=== PATIENT | male | born 1980 | race Caucasian/White ===

== ENCOUNTER 2019-03-19 09:00 | Outpatient (RCR) | payer OTHER, MEDICAID, SELFPAY ==
--- NOTE | 2019-03-19 09:00 | BH.SGPN.GN ---
Behaviors/Verbalizations/Mental Status: [] Eye contact is good. Motor activity is appropriate. Appearance is casual. Speech is Appropriate. Mood is depressed. Affect is flat. Thoughts are linear and logical. No evidence of psychosis. Reviewed daily check in sheet and no reports of suicidal ideations or intent. Client Response/Progress/Benefit: [] Pt participated at times during group discussion. Daily symptom tracker indicates 4/5 for anxiety, worries, and fears. Also reports hopelessness. This is pt's first day in PHP. Introduced self to the group. Talked about recent inpatient admission, recent break-up, and struggles with depression. States he needs to learn how to stay outside my head. Group was support and welcoming which was beneficial. No progress as this was fist day. Will continue in PHP to maintain safety, prevent decompensation, increase coping skills, and improve functioning to return to work. Narrative Note: []
--- NOTE | 2019-03-19 10:16 | BH.SGPN.GN ---
Behaviors/Verbalizations/Mental Status: [Client alert and oriented, casually dressed and appropriate grooming. Eye contact fair to good. Motor activity appropriate. Speech within normal limits. Affect congruent, mood depressed. Thoughts linear, logical, no signs of hallucinations or delusions] Client Response/Progress/Benefit: [Pt participated in group discussion and worksheet activity. Pt connected with the group topic of Crisis and indicated that how you learn to deal with past crisis situations can impact your approach in the future. Pt Worked together with the group to define a crisis and discuss examples of crisis situations. Pt described his divorce as an example of potential crisis. Client helped the group explore how coping with crisis in unhealthy ways can impact mental health and lead to additional crisis. He shared personal example of how past trauma caused him to ?try and control the uncontrollable? which impacted his current relationship. Group identified warning signs for crisis which included; increased sleep, irritability, decreased appetite, and suicidal thoughts. Client completed the personal warning signs worksheet and identified top three crisis warning signs as; isolation, uncontrollable worry, and increased negative thinking. Benefited from group by increasing awareness of crisis and personal warning signs. Progress noted as pt displaying increased insight into personal warning signs and impact of unhealthy coping on crisis management. Will continue IOP to promote mood stability and emotion regulation, reduce anxiety and racing thoughts, decrease isolation.?] Narrative Note: []
--- NOTE | 2019-03-19 11:15 | BH.SGPN.GN ---
Behaviors/Verbalizations/Mental Status: []]Client alert and oriented, casually dressed and groomed. Eye contact good. Motor activity appropriate. Speech within normal limits. Affect constricted, mood anxious and dysthymic. Thoughts linear, logical, no signs of hallucinations or delusions. Client Response/Progress/Benefit: []Client responded well to session as evidenced by client listening attentively to others and sharing when prompted. Client identified her warning signs for crisis and gained further awareness of his earliest warning signs. Client recognized that awareness of these warning signs can prevent further crisis and help client utilize healthy coping skills to break the cycle. Client created a crisis action plan to help client better manage earliest warning signs for crisis of negative thinking, uncontrollable worries, and isolating. Client?s plan included coping skills such as challenge negative thoughts, positive self-talk, reminding self a thought is a thought, changing environment, and reaching out to support group. Client appeared to benefit from creating a crisis action plan and increasing his self-awareness. Client's first day in IOP. Client to continue IOP level of care to increase healthy coping, decrease depressive symptoms, and prevent decompensation. Narrative Note: []
--- NOTE | 2019-03-19 13:19 | BH.MDN_ITS ---
Multi-Disciplinary Note - Note 45-min Individual Time Started:: 12:30 Date: 03/19/19 Purpose of session/treatment goals addressed:: Review current symptoms and progress in [facility]. Began to develop treatment goals and objectives. Eye Contact:: Good Motor Activity:: Appropriate Appearance:: Casual Speech:: Appropriate Mood:: Depressed Affect:: Flat Thoughts:: Linear, Logical, No evidence of hallucinations/delusions noted Staff Interventions:: Utilized [place] techniques to elicit change behaviors. Worked with pt to develop some treatment goals. Client Response:: Pt reports that the groups today were very helpful. Notes that since his inpatient hospitalization he has noted an improvement in mood and decrease in depression. Denies any suicidal ideations, plan, or intent. Discussed the benefits of the hosptialization. Giulia moved on on 03/17/19. Yesterday was the first day back to the house. He went with a friend which he beleived would be easier. Spent some time in the house and actually went back later on in the day. It's not as bad as I thought. Was orignally scared to be alone with his thoughts in the house which was one of the reasons for the [facility]. Currently living with his parents which he beleives is better than being the house all alone. Hopeful about the future. Goals for the IOP include; control my emotions and thoughts; anger management, get over my divorce, learn to trust others. Risks/Concerns:: No risk or concerns. Pt denies any active suicidal ideations, plan, or intent. Last sucidal thoughts was fleeting and occured on 03/17/19 prior to hospitilzation and after hearing news his giulia moved out. Future-oriented. Protective factors. Progress Toward Goals/Plan:: Limited progress as this was first day in [facility]. Decreased severity, duration, and intensity of symptoms since hospitalization. Continues to report grief regarding relationship with giulia, depression, regret, and anxiety which impact functioning. Will continue in [facility] to maintain safety, prevent decompensation, and increase coping skills. Time Stopped:: 13:00
--- NOTE | 2019-03-22 09:02 | BH.SGPN.GN ---
Behaviors/Verbalizations/Mental Status: [Eye contact is fair to good. Motor activity is appropriate. Appearance is casual and grooming appropriate. Speech is WNL. Mood is depressed, anxious. Affect is congruent. Thoughts are linear and logical. No evidence of psychosis. Reviewed daily check in sheet and no reports of suicidal ideations or intent.] Client Response/Progress/Benefit: [Pt was receptive of group, engaged in discussion though taking on an mostly passive participatory role. Indicated connecting with other?s input. Emotion for today is ?sad? and ?guilty?. Pt attributes this to feeling as though his struggles in managing mental health symptoms are placing a burden on other's in his life. Pt went on to describe difficulties in challenging thoughts causing guilt and noted I just can't seem to get control of my emotions. Pt appeared to benefit from fellow participants support and encouragement, as well as normalizing his struggles as others indicated similar experiences when beginning tx. Pt able to identify mental health wins and shared making progress with using opposite action over the weekend as he had followed through with going to play basketball at the park despite low levels of motivation to do so. Pt shared this was helpful and improved his mood at the time, however felt short lived. Additional win was taking time to make sure he is eating healthy food as he feels better mentally when his physical health is cared for. Some progress in pt application of behavior activation over weekend. However, continued PHP tx recommended to promote further utilization, decrease self-deprecation, and maintain safety. ] Narrative Note: []
--- NOTE | 2019-03-22 10:14 | BH.SGPN.GN ---
Behaviors/Verbalizations/Mental Status: []Client alert and oriented. Casual in dress and appropriate grooming. Eye contact good. Motor activity appropriate. Speech within normal limits. Affect constricted, mood depressed. Thoughts linear, logical, no signs of hallucinations or delusions. Client Response/Progress/Benefit: []Pt was an active participant in group discussion. Processed quote of the day with peers. Group discussed the MH benefits to having open and clear communication with support and providers. Group also discussed the barriers that tend to impact clear and open communication which include: depression, anxiety, fear, not trusting others, feeling like others don't understand you, shutting down, and unmanaged emotions. Pt reported all my emotions get in the way of communicating effectively. Pt reported when his emotions are heightened he will either shut down or start arguments. Pt shared if he is passive he will eventually break because can no longer bottle his emotions. Pt was attentive during psycho-education on communications styles (aggressive, passive, passive-aggressive, and assertive). Also provided input on the pros and cons to each communication style. Seemed to benefit from increased awareness of how communication style can impact mental health. Pt to continue IOP level of care to decrease depression, increase utilization of healthy coping, and prevent decompensation. Narrative Note: []
--- NOTE | 2019-03-22 11:16 | BH.SGPN.GN ---
Behaviors/Verbalizations/Mental Status: []Client alert and oriented, casually dressed and groomed. Eye contact good. Motor activity appropriate. Speech within normal limits. Affect congruent but laughing at times, mood anxious. Thoughts linear, logical, no signs of hallucinations or delusions. Client Response/Progress/Benefit: []Client responded well to session, contributing to discussion. Engaged in ongoing psychoeducation on the different communication styles. Client able to gain insight into his communication style and client reported ?I start passive and then I overflow and get aggressive.? Client shared he tends to hold in emotions and then they build up which results in client saying things he does not mean. Client reported these communication styles have negatively impacted his mental health and relationships. Client shared he has low self-esteem, guilt, and regret from his communication styles. Participated in group activity and took an active role which suggests progress. Able to use the activity to reflect on ways to improve communication. Attentive during psychoeducation on D.E.A.R M.A.N and reported he wants to work on being more mindful of his approach to communication. Appeared to benefit from increasing self-awareness and practicing in the moment coping skills. Will continue PHP to prevent decompensation and improve mood stability.
--- NOTE | 2019-03-22 11:57 | BH.MTP_ITS ---
Master Treatment Plan - Patient Information Program Physician:: Dr. 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 Generalized Anxiety Disorder Diagnosis Code(s):: F33.2; F41.1 - Estimated LOS Estimated LOS (in weeks):: 1 Problem/Goal #1 - Problem/Goal #1 Stated Goal:: Client will decrease depressive symptoms, isolation, suicidal ideations, and agitation due to Major Depressive Disorder through PHP Description of Barriers: stigma, trust issues, hx of trauma, recent break-up Functional Impact: Depression has impacted ability to function at work ( on [address]), his relationships, and socialization. - Objectives Objective #1 Stated Objective: Client will work with therapist to develop a ?crisis plan? which includes emergency telephone numbers, 3-4 coping strategies for SI, lists of supports, positive aspects of his/her life, and motivations Interventions: Through indivudal and group counseling will provided pt with education and coping skills. Therapist will provided a safety plan worksheet and assist pt in completing this worksheet Discharge Criteria: Completion of safety plan. Target Date: 03/26/19 Review Date: 03/26/19 Objective #2 Stated Objective: Client will be given a thought log and fill out at least 2 different occurences involving event, thoughts, feelings, and behaviors to increase insight into the impact of thoughts of feelings and behaviors. Interventions: Through individual and group counseling will provide education and guidance on completing a thought log Discharge Criteria: Will have complete a thougt log for at least 2 different events. Target Date: 03/26/19 Review Date: 03/26/19 Problem/Goal #2 - Problem/Goal #2 Stated Goal:: Client will reduce overall frequency, intensity, and duration of the anxiety so that daily functioning is not impaired. Description of Barriers: stigma, recent break-up, lack of trust, hx of trauma Functional Impact: Anxiety has led to isolative and controlling behaviors which has impacted relationships and socialization. - Objectives Objective #1 Stated Objective: Client will learn and implement 2-3 calming skills to reduce overall anxiety and manage anxiety symptoms. Interventions: Through individual and group counseling will teach client calming/relaxation, mindfullness, and radical acceptance skills and assign client homework which practices relaxation skills daily. Discharge Criteria: Client will have achieved this goal when can verbalize at least 2 calming skills and implement those skills. Target Date: 03/26/19 Review Date: 03/26/19
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
--- NOTE | 2019-03-22 13:27 | BH.MDN ---
Multi-Disciplinary Note - Note 45-min Individual Time Started:: 12:10 Date: 03/22/19 Purpose of session/treatment goals addressed:: Reviewed current symptoms and progress in [facility]. Eye Contact:: Good Motor Activity:: Appropriate Appearance:: Casual Speech:: Appropriate Mood:: Depressed Affect:: Flat Thoughts:: Linear, Logical, No evidence of hallucinations/delusions noted Staff Interventions:: Utilized [place] techniques to elicit change behaviors. Worked with pt on identifying thoughts and feelings. Provided education on cognitive distortions. Client Response:: Pt states that this weekend was bad at times. Notes lonliness on Friday and Friday which resulted in negative thinking and isolation. Thoughts were mainly about his relationship with kristin and centered on whether she has found someone else and wheter she truly wants to get back together. Worked with therapist on challenging, developing rational thought responses, and acceptance. He discussed the group topic this AM which was communication and actually utilized some skills when texting and talking with kristin. He fought the urge to blow up her phone with texts when she did not respond quickly. Also fought the urge to question where she was at. He sees this as big wins. Able to identify that being accusatory and smothering her does not benefit him, her, or the relationship. Able to identify how this has positively impacted his mood. Noted that this AM he was anxious, depressed, and stressed however after group, positive interaction with kristin, and individual he is feeling more hopeful. Risks/Concerns:: none noted. Denies any suicidal ideations, plan, or intent. Progress Toward Goals/Plan:: Progress noted per pt report. Consciously working on improving communication with kristin which is positively impacting his mental health. Struggles with being alone. Currently only utilizing distraction as a coping skill. Did not attend his brother's b-day alliance party b/c I was to in my head. Intrusive thoughts regarding his kristin and her desire to be with him and possibly cheating. These thoughts continue to impact mood and functioning. Denies any suicidal ideations since 03/17/19. Feels hopeful. Will continue in [facility] to maintain safety, prevent decompesation, and improve functioning to return to work. Time Stopped:: 12:55
--- NOTE | 2019-03-23 09:04 | BH.SGPN.GN ---
Behaviors/Verbalizations/Mental Status: []Client alert and oriented, casually dressed and groomed. Eye contact good. Motor activity appropriate. Speech within normal limits. Affect congruent, mood depressed. Thoughts linear, logical, no signs of hallucinations or delusions. Reviewed client?s symptom tracker, no signs of suicidal ideation, plan, or intent as of today. Client Response/Progress/Benefit: []Pt was an active participant in group discussion, providing input and openly processing with the group. Emotion for today is depressed. Pt indicated that he is struggling today because it's his son's birthday and he cannot afford to purchase his son an expensive gift since pt has been off work for several weeks. Pt stated he feels worthless and helpless that he cannot provide for his son. Pt accepted ideas from group about taking his son for an experience that is free versus worrying about spending a lot of money. Pt noted progress as managing his emotions when his son didn't want to go to football practice last night. Pt stated typically he would yell and argue with his son, but last night he thought about his reaction first and chose to talk to his son calmly, which resulted in his son choosing to go to football practice. Pt reported it helped him to think about consequences of yelling at his son. Additional positives as getting 8 hours of sleep and laughing with his sons last night. Progress noted in application of emotion regulation skills outside of treatment environment. Continued IOP tx recommended to improve emotional regulation, prevent decompensation, and identify and challenge negative thought patterns. Narrative Note: []
--- NOTE | 2019-03-23 10:11 | BH.SGPN.GN ---
Behaviors/Verbalizations/Mental Status: [Client alert and oriented, casually dressed and appropriately groomed. Eye contact fair to good. Motor activity appropriate. Speech within normal limits. Affect congruent, mood dysthymic. Thoughts linear, logical, no signs of hallucinations or delusions. ] Client Response/Progress/Benefit: [Client was an active participant in group activity and provided input to discussion. Client connected with the topic of obstacles and solutions and worked with group to identify common internal barriers that keep people stuck. Pt identified; difficulties in accepting current reality and lack of motivation. Client shared his current reality as feeling ?trapped between a rock and a hard place?. He shared that the rock represents his thoughts which keep him stuck. Pt indicated his family is visible but out of reach and that he knows what to do but isn?t able to. Client shared a realistic, desired reality would be feeling more capable of moving the rock and starting to get the motivation and desire to actively challenge thoughts and use skills that would help with getting closer to his family. Client identified personal strengths including; seeking help, challenging himself to recognize when thoughts are distorted, and learning to better accept his current reality as positives that will help client move closer to desired reality. Benefited from group as client was able to identify current mental health state and barriers that are impacting progress. Will continue IOP to prevent decompensation and improve thought challenging, as well as emotion regulation skills.] Narrative Note: []
--- NOTE | 2019-03-23 11:13 | BH.SGPN.GN ---
Behaviors/Verbalizations/Mental Status: []Client alert and oriented, casually dressed and groomed. Eye contact good. Motor activity appropriate. Speech within normal limits. Affect congruent, mood dysthymic. Thoughts linear, logical, no signs of hallucinations or delusions. Client Response/Progress/Benefit: []Client responded well to session, providing to discussion and engaged in activity.? Client identified current barriers keeping him from desired reality include: negative thoughts, lack of acceptance, overthinking, and not being able to move on from the past. Client worked cooperatively?to identify strategies to overcome various barriers which included: opposite action, journaling, having a self-care routine, reminding himself ?the past is not my present,? challenging distortions, reaching out to supports, and looking for evidence against negative thoughts. Client reported he plans to tell himself ?the past is not my present? to help overcome personal barriers to desired reality. Client seemed to benefit from identifying strategies he will use to overcome personal barriers and using in the moment problem-solving. Client to continue IOP level of care to continue use of healthy coping skills and further reduce depressive symptoms.
--- NOTE | 2019-03-23 14:55 | BH.MDN_ITS ---
Multi-Disciplinary Note - Note 30-min Individual Time Started:: 12:29 Date: 03/23/19 Purpose of session/treatment goals addressed:: Purpose of this session was to assess current symptoms, stressors, and treatment progress. Another purpose was to began working on pt crisis plan. Additional topics: intrusive thoughts, self- compassion Eye Contact:: Good Motor Activity:: Appropriate Appearance:: Casual Speech:: Appropriate Mood:: Anxious, Depressed Affect:: Congruent Thoughts:: Linear, Logical, No evidence of hallucinations/delusions noted Staff Interventions:: Therapist asked open-ended and furthering questions to elicit information regarding pt current symptoms and stressors. Provided empathic responses and used strength-based approaches to validate pt emotions, normalize difficulties with consistent skill application, and aid in identifying areas of progress. Therapist provided psychoeducation on intrusive thoughts and their connection with crisis cycle. Provided education on sections of the crisis plan and worked with pt to explore internal/external coping skills, warning signs, support, crisis numbers, and self-talk. Client Response:: Pt receptive of session and willing to meet with this therapist as his usual PHP therapist is out of the office. Reports that he believes he is getting something from both individual and group sessions. Pt discussed using skills of pausing and asking himself ?will that reaction have any benefit? and opposite action. Pt shared doing so when his son was upset about having to go to football and found he was able to actually regulate himself and prevent the situation from escalating further by talking to his son rather than fighting back or demanding he go. Overall, Pt reports increased confidence in his ability to manage depression but continues to reports fears that he will not be able to sustain gains and overwhelming worry. Pt reports increase in knowledge as to how to begin coping with his emotions. Pt indicated he has not experienced SI since before being admitted to inpatient psychiatric unit last week. Willing to work with therapist to complete crisis plan and discussed importance of having a concrete plan to refer back to. Remainder of session spent reviewing components of Crisis Safety Plan. Pt was able to identify warning signs to crisis, negative thoughts which effect crisis, internal coping skills, as well as things to tell himself to combative negative thoughts. He discussed with this therapist potential supports and reviewed local crisis numbers. Pt was also able to identify motivations to living which included ?I want to do this for myself and my family?. He shared a desire to ?get back to being able to just laugh again?. Risks/Concerns:: Denies any active suicidal thoughts, plan, or intent as of this date, 03/23/19. Reports an ability to maintain safety and is future oriented. Progress Toward Goals/Plan:: Progress noted. Pt remains an active participant in both group and individual sessions. He has displayed increased ability to generalize skills learned and reports his fianc? has expressed noticing improvements in pt overall mental wellness as well. Pt is open to feedback and receptive of challenging his perspective. He has begun to develop crisis plan and reports increased ability to identify small wins and positive in his life. Pt to continue PHP level of care to maintain safety, prevent decompensation, and continue to develop skills for management of depression and anxiety. Time Stopped:: 13:05
--- NOTE | 2019-03-24 10:07 | BH.SGPN.GN ---
Behaviors/Verbalizations/Mental Status: [Client alert and oriented, casually dressed and appropriately groomed. Eye contact fair to good. Motor activity appropriate. Speech is WNL. Affect congruent, mood anxious and depressed Thoughts linear, logical, no signs of hallucinations or delusions. ] Client Response/Progress/Benefit: [Client responded well to session, engaged throughout discussion though less talkative than usual baseline. He appeared to connect with the topic of personal pitfalls and how they can prevent mental health progress. Client asked for clarification on difference between internal and external pitfalls and connected that his divorce as an external pitfall but his avoidance as a result was internal. Client connected with the need for healthy coping skills as a means of managing and preventing pitfalls. Client participated in the group activity and did well to challenge himself to remain engaged when becoming stressed. Progress noted in increased ability to apply in the moment self-regulation skills and use assertive communication. Client appeared to benefit from increasing self-awareness and applying in the moment coping. Client to continue IOP to prevent decompensation, continue to promote healthy boundaries, decrease depression, as well as increase distress tolerance skills.] Narrative Note: []
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
--- NOTE | 2019-03-24 10:43 | BH.DR.ITP ---
Initial Treatment Plan - Patient Information Visit Information: ADMISSION DATE: EXPECTED LOS: 4-6 weeks - Problems/Symptoms Problem #1:: Depression Symptom:: Sadness, decreased concentration, decreased sleep, weight loss Problem #2:: Anxiety Symptom:: Rumination, worry over fiance
--- NOTE | 2019-03-24 11:59 | BH.NA_ITS ---
Physical Data - Vital Signs Pulse Rate: 88 Respiratory Rate: 16 Blood Pressure: 152/104 - Height/Weight Height: 1.88 m Weight:: 106.594 kg Weight in Pounds: 235.0 lbs Current Medication Compliance - Medication Compliance Do you take your medication as prescribed?: Yes Do you need assistance with taking medication?: No Have you had side effects from medication?: No Nutritional History - Appetite Nutritional Instructions:: If client shows signs of a swallowing problem, weight change of 10 pounds or more in the last month, or is on a diabetic diet, the physician will review and request a dietitian consult, as appropriate. All unintentional weight loss will be referred to the physician for decision on need for dietitian consult. Describe your appetite:: Fair Have you noticed a change in your eating habits lately?: Yes - decreased appetite with mental health decompensation Functional Assessment - Sleep Pattern Describe any problems with sleeping: Client describes difficulty falling asleep. - Activities Motor Activity:: Functional Sensory/Communication Assess - Communication Problems Do you have difficulty understanding what people are saying?: No Do you have trouble putting your thoughts into words or expressing what you want to say?: No Do people ever have trouble understanding what you say?: No What is your primary language?: Armenian Learning Assessment - Learning Barriers Learning Barriers:: Ready to learn Medical Problems/History - Pain Assessment Do you have acute or chronic pain?: Yes Surgical History - Surgical History Have you had any surgeries? If so, list type and date:: Yes - see PMHx in Summary Substance Abuse - Substance Abuse Please describe substance abuse in the last 30 days:: Client denies illicit substance use. Smokes 0.5 ppd cigarettes, chewing tobacco x17 years. ETOH use occassionally. Mental Status Summary - Mental Status Significant Findings/Observations on Appearance and Mood:: Brain is A&Ox4, cooperative with interview, and makes good eye contact. Normal activity while seated. Speech is clear and of normal rate and volume. Mild depression and anhedonia. Mood congruent affect. Logical associations. Normal process. No symptoms of delusions. Denies hallucinations, SI, and HI. Suicide Assessment - Suicidal Ideation Are you currently or have you been suicidal in the past?: Yes Suicidal Intentional Rating Scale (SIRS): Suicidal thoughts (past) Physician Notification: If Active suicidal thoughts/Will not contract for safety is checked, contact physician and document in the Physician Notification section below. Past Psychiatric History - MH Treatment Hx ECT Therapy Details:: N/A Describe (age, circumstance, etc) any past hospitalizations: [facility]: 03/16/19-03/18/19 for SI Fall Risk Assessment - Age Age: Less than 60 - Mental Status Mental Status: Willing & able to ask for assistance when needed - Physical Status Physical Status: No problems - Impairments Impairments: None - Elimination Elimination: Continent AND independent - Gait or Balance Gait or Balance: Walks independently - Hx of Falls History of falls in the past 6 months: No known history - Medications/Substances Psychotropics:: Anxiolytics (e.g. benzodiazepines) Others:: Antihypertensives Medications/substances used within the past 24 hours or ordered to administer: 1-2 of the medications/substances listed above - Total Score Total Points:: 1 RN Summary of Impressions - Impressions Recommendations: Include psychiatric and medical issues, treatment planning recommendations, and discharge planning needs. Impressions: Psychiatric Issues: MDD, FAHAD Impression: Medical Issues: HTN, DDD with RLE paresthesia Impressions: Discharge Planning Needs: Client needs to establish with PCP - list of local providers given to client. - Level of Care How do the client's current symptoms and functional deficits support need for this level of care?: Brain's mental health has been decompensating for several months. He endorses multiple stressors, including his fiance moving out. Brain does note that he has his parents and his brother as support; his two sons (8 & 12) give me purpose. Client has been isolating and has very low motivation; he finds little emmanuel in anything outside of his kids. He was recently hospitalized at [facility] for SI, which he now denies. Blaine notes a decreased appetite with associated 16# weight loss in the past 10 days. Client also has difficulty falling asleep most nights due to rumination and feelings of anxiety. IOP will provide social support and skills training to prevent further de compensaiton and promote gains.
--- NOTE | 2019-03-24 14:57 | BH.MDN_ITS ---
Multi-Disciplinary Note - Note 30-min Individual Time Started:: 12:15 Date: 03/24/19 Purpose of session/treatment goals addressed:: Review current symptoms and progress in IOP. Used session to review safety plan and to discuss session with fiance scheduled for tomorrow. Eye Contact:: Good Motor Activity:: Appropriate Appearance:: Casual Speech:: Appropriate Mood:: Anxious, Depressed Affect:: Congruent Thoughts:: Linear, Logical, No evidence of hallucinations/delusions noted Staff Interventions:: Utilized CT techniques to elicit change behaviors. Reviewed safety plan with pt. Modeled thought-stopping. Pointed out cognitive distortions. Client Response:: Pt and therapist reviewed his finished safety plan which included warning signs, emergency telephone numbers, 3-4 coping strategies for SI, lists of supports, positive aspects of his/her life, and motivations. Discussed the benefits and times to use this plan. Reports feeling depressed and anxious today. Ruminating thoughts which are mainly around his relationship s tatus with his fiance. They speak daily and currently he describes the relationship as on break. He is optimistic however notes that he needs to be patient and give her some space. In speaking together she has agreed to come to joint counseling session tomorrow. Pt is nervous. He wants to better understand his expectations and things that he needs to work on in the relationship. He believes that he has improved his communication with her and is focusing on the things that are within his control. Risks/Concerns:: no risks or concerns noted. Denies SI,plan, or intent. No current access to firearms as his gun is locked at parent's house. Progress Toward Goals/Plan:: Progress noted. Pt reports more engaged and less irritable with his children. Consistent attendance. Active participant in groups. Improved positive and assertive communication with fianup. Depression, anxiety, and stress continue to impact daily thoughts. Learning to challenge and identify thoughts and distortions. Is not consistently using coping skills. Mainly relies on distraction. Will continue in PHP to maintain safety, prevent decompensation, and to increase coping strategies.
--- NOTE | 2019-03-25 09:00 | BH.SGPN.GN ---
Behaviors/Verbalizations/Mental Status: [] Eye contact is good. Motor activity is appropriate. Appearance is casual. Speech is Appropriate. Mood is anxious. Affect is congruent. Thoughts are linear and logical. No evidence of psychosis. Reviewed daily check in sheet and no reports of suicidal ideations or intent. Client Response/Progress/Benefit: [] Pt participated at times during group discussion. Emotion for today is anxious. Check in was very short today. Notes that he has been more active this week mainly due to having his kids. Improved sleep. Reports that he feels happy and hopeful however anxious. Distracted. Pt has session with daryl-kristin after this group so he may be distracted due to this. Benefited from group support and encouragement. Progress noted per pt. Will continue in PHP to maintain safety, prevent decompensation, and increase healthy coping skills. Narrative Note: []
--- NOTE | 2019-03-25 10:58 | BH.MDN ---
Multi-Disciplinary Note - Note Family Time Started:: 10:00 Date: 03/25/19 Purpose of session/treatment goals addressed:: Met with pt and his ex-fianup. The ending of this relationship was a huge stressor and trigger to pt's psychiatric admission. They have been continuing to communication several times a day and are working on their relationship. Pt and his ex requested session to identify expectations and effective communication Eye Contact:: Good Motor Activity:: Appropriate Appearance:: Casual Speech:: Appropriate Mood:: Anxious Affect:: Congruent Thoughts:: Linear, Logical, No evidence of hallucinations/delusions noted Staff Interventions:: Provided education on healthy relationships and effective communication. Faciliated discussion between them on several topics Client Response:: Met with pt and his ex-fianup. Ex had moved out of the house they were living at about a week ago. Despite moving out they continue to communicate several times throughout the day via phone and text. Pt and ex described and defined a healthy realtionship with common themes which included trust, communication, patience, compromise, and independence. Ex identified that pt struggled with independence and trust which pt agreed. Communication was also an area which was unhealthy as pt would often get upset if she did not respond to his text in a timely fashion. Overall she reported feeling controled and led to depression and anger. Pt agreed that his behaviors were not healthy. Both described expectations of thier current relationship and agreed that they could continue to communicate, however she was clear that moving back in together was not something that would happen anytime soon. Pt was agreeable and provided some suggestions she could do to help improve thier communication and increase his trust in her. Risks/Concerns:: No risks or concerns noted. Progress Toward Goals/Plan:: Progress noted. Expecations were made clear regarding thier current and future relationship. Some closure regarding ex's reasons for moving out. Will continue in PHP to maintain safety, prevent decompensation, and to improve functioning to return to work. Time Stopped:: 10:50
--- NOTE | 2019-03-26 09:06 | BH.SGPN.GN ---
Behaviors/Verbalizations/Mental Status: [Client alert and oriented, casual appearance. Eye contact good. Motor activity appropriate, at times fidgetting or restless. Speech within normal limits. Affect congruent, mood euthymic. Thoughts linear, logical, no signs of hallucinations or delusions. Reviewed client?s symptom tracker, no risk for suicidal ideation, plan, or intent as of 03/26/19.] Client Response/Progress/Benefit: [Pt responded well to session, providing some input and receptive of feedback. Pt reports feeling ?content? today and indicated he has not been able to recognize feeling ?just content? and not sad or in crisis in several weeks, did well to reflect upon this as a win. Pt identified mental health wins today which included being more active and motivated to engage in physical activity which has helped him to spend more quality times with his children. Additionally, reports successfully using skills of assertive communication when meeting with his fianc? rather than aggressive, noting use of self-talk statements. Client stated his stressor today is continued unexplained weight loss, receptive of reaching out to primary care to further address concerns. Client appeared to benefit from reflecting on small mental health wins that have aided in an overall decrease mental health symptoms. Progress noted as client reports reduced depression and increased motivation. Will continue IOP tx to promote gains and reduce the intensity of symptoms.?] Narrative Note: []
--- NOTE | 2019-03-26 10:10 | BH.SGPN.GN ---
Behaviors/Verbalizations/Mental Status: []Client alert and oriented, casually dressed and groomed. Eye contact good. Motor activity appropriate. Speech soft, less vocal than previous sessions. Affect flat, mood depressed. Thoughts linear, logical, no signs of hallucinations or delusions. Client Response/Progress/Benefit: []Client attentive during discussion and contributing occasionally. Client appeared to connect with the topic of fear of failure. Client reported he used to think he was a failure and stated, ?I used to think I failed my fianc? and my kids.? Client shared he can now reframe his negative thinking and client sees his situation as an opportunity to improve himself. Client reported failure is about perception and it is possible to view failures as opportunities for growth. Group identified the impacts of fear of failure on mental health which included: learned helplessness, not trying, depending too much on others, avoidance, self-sabotage, and increased mental health symptoms. Client reported fear of failure can keep people from positive opportunities and improved mental health. Client seemed to benefit from increased awareness of how fear of failure can impact mental health. Client to drop down to IOP level of care as he has shown progress in PHP and can benefit from the ongoing structure of the IOP setting.
--- NOTE | 2019-03-26 11:15 | BH.SGPN.GN ---
Behaviors/Verbalizations/Mental Status: []Client alert and oriented, casually dressed and groomed. Eye contact fair. Motor activity appropriate. Speech within normal limits. Affect flat, mood depressed. Thoughts linear, logical, no signs of hallucinations or delusions. Client Response/Progress/Benefit: []Client less engaged in session compared to previous group sessions as evidenced by pt providing little input during discussion, however did appear to attentively listen to others. Client completed fear of failure worksheet and shared with group. Client shared fear of failure is keeping client from making a fresh start in my life. Client elaborated he is fearful if he tries to move on to a new relationship he will fail like he has in previous relationships. Client identified barriers to overcoming fear of failure which included: holding onto the past, over-thinking, worry will let everyone down again, and tired of needing to rely on supports. Client identified things that he can do to overcome fear of failure such as: acceptance that the fresh start might not look like what he wants; moving on from his past; reaching out for support; challenging negative thoughts; positive self-talk. Benefited from identifying the impact that fear of failure has had on his life and developing strategies to overcome fear of failure. Progress noted with pt's increased self-awareness of impact distorted thoughts have on his mental health. Will continue IOP to prevent decompensation, improve emotional regulation and improve healthy coping skills. Narrative Note: []
--- NOTE | 2019-03-26 13:54 | BH.DS_ITS ---
Discharge Summary - Demographics Date of Admission:: 03/19/19 Discharge Date: 03/26/19 Presenting Problems at Admission:: Pt is a 38 year old male. Hx of MDD. Recently discharged from [place] psychiar[facility] unit on 03/18/19 due to fleeting suicidal ideations and inability to contract for safety. Pt had reported fleeting SI with thoughts to jump infront of traffic on 03/17/19 after learning that his fiance had moved out of [facility] house while he was at work. Hx of suic idal gesture 7 years ago as he held a gun to his head. This was in the context of a divorce from his . Worsening mental health symptoms prior to fiance leaving which may have contributed to relationship stress. Endorses low energy, low motivation, isolation, poor sleep, poor appetite, and anhedonia. Denies HI or psychosis. Social drinker. Discharge Diagnoses:: Major depressive disorder recurrent severe without psychosis. Generalized anxiety disorder Reason for Discharge:: No longer meets criteria for [facility] level of care. - Treatment Progress During Treatment & Response: Consistent attendance. Active participant in group and individual sessions. Overall notes improvement. Denies any suicidal ideations, plan, or intent. Denies any desire to be . Feeling more comfortable being alone in the house. Insight into the positives of being more independent. Has obtained some clarity from his ex-fiance as well. Has been a week since discharge from psychiatric unit and appears to be adjusting well. Met treatment plan goals; completed crisis plan, able to verbally work through thought log, and has developed and consistently implemented 2 calming skills. Issues Still to be Addressed:: Grief over relationship loss, depression, anxiety, consistent use of coping strategies. Has to transition back to work. Discharge Recommendations/Instructions:: Recommended to step down to [facility] level of care starting next week. Discharge Handout: Complete Discharge Handout with client on aftercare options and continuity of care.
--- NOTE | 2019-03-26 13:54 | BH.MDN ---
Multi-Disciplinary Note - Note 45-min Individual Time Started:: 12:20 Date: 03/26/19 Purpose of session/treatment goals addressed:: Reviewed current symptoms and progress in PHP. Reviewed treatment plan goals. Eye Contact:: Good Motor Activity:: Appropriate Appearance:: Casual Speech:: Appropriate Mood:: Anxious, Depressed Affect:: Congruent Thoughts:: Linear, Logical, No evidence of hallucinations/delusions noted Staff Interventions:: Utilized AL techniques to elicit change behaviors. Reviewed skills learned in [facility]. Developed plan to increase independence. Client Response:: Pt reports some anxiety and depression today. He has been thinking more about his relationship with kristin. Struggles with what he percieves as mixed messages from ex-fianup about the future of thier relationship. Able to idetnify that he can only control how he reacts in the relationship and not her or her decisions. He brought up the possibility of decreasing the amount of communication between them. Developed a plan to attempt to decrease number of text sent this weekend. Ruminations about the relationship increase his depression and anxiety. Reviewed treatment plan goals and pt was able to identify some calming skills which include breathing techniques and taking time before he reacts or speaks. Both of these skills have positively impacted his mood. He has not completed the thought log despite many reminders however is able to verbalize in the session his thoughts, feelings, behaviors, and even cognitive distortions that he often uses. He has plans to stay busy this weekend with support. Overall notes improvement. Denies any suicidal ideations, plan, or intent. Denies any desire to be . Feeling more comfortable being alone in the house. Insight into the positives of being more independent. Has obtained some clarity from his ex-fiance as well. Risks/Concerns:: no noted. refer above. Progress Toward Goals/Plan:: Progress noted. Denies any suicidal ideations, plan, or intent. Denies any desire to be . Reports decreased frequency, intensit, and duration on negative self talk and depression. Feeling more comfortable being alone in the house. Insight into the positives of being more independent. Has obtained some clarity from his ex-fiance as well. No longer meets criteria of [facility] level of care. Treatment goals accomplished. Discussed with treatment treatment team will plan to step down to [facility]. Time Stopped:: 13:00
[2019-06-02 07:48] VITALS: BP 152/104; PULSE 88; RESP 16
== END 2019-03-26 13:55 | disposition home or self-care (01) ==
LOC: BHPHP 09:00
PROVIDERS: Family Provider Family Medicine; PCP Family Medicine; Referring Provider Psychiatry & Neurology Psychiatry; Visit Provider Psychiatry & Neurology Psychiatry
DX: F33.2 Major depressive disorder, recurrent severe without psychotic features (principal); F41.1 Generalized anxiety disorder
CPT/HCPCS: H0035; 90832; 90834; 90847; 90853; G0410

== ENCOUNTER 2019-03-29 09:00 | Outpatient (RCR) | payer OTHER, MEDICAID, SELFPAY ==
--- NOTE | 2019-03-31 09:03 | BH.DR.ITP ---
Initial Treatment Plan - Patient Information Visit Information: ADMISSION DATE: EXPECTED LOS: 4-6 weeks - Problems/Symptoms Problem #1:: Depression Symptom:: Sadness, isolating behavior, decreased sleep Problem #2:: Anxiety Symptom:: Rumination, worry
--- NOTE | 2019-03-31 09:04 | PCM.BH.PN ---
Progress Note Progress Note: History of Present Illness/Interim History: [] Patient is a 38-year-old male who is seen in follow-up at the [facility]. The chart was examined the case was discussed with the staff and after the case was reviewed with the team and the patient will be stepping down to IOP today. He states that he is feeling better than he was 1 week ago. He is much less depressed although he does remain depressed and sad. His anxiety is slightly better but still pretty intense. He notices that when he is alone with nothing to do is when he finds himself ruminating negatively. His appetite is much improved since starting the Remeron. He is hungry and eating more but he feels he is still losing weight. His sleep is better overall since starting the Remeron also. He is sleeping 6 to 7 hours some nights but on other nights he will have 1 to 2 hours of initial insomnia. He has been able to leave the house and went to the [employer] but still is not really enjoying it crowds and likes to be home. He feels that he is learning skills in the program that will help him. He feels the individual and group therapy is helping him and he is learning skills and how to except situations in his life especially concerning his fianc?e and ex- issues. Patient is tolerating the Remeron well with no complaints. Current Psychiatric Medications: Remeron 15 mg p.o. nightly Mental Status Examination: [] Patient is a 38-year-old male who appears normal for stated age and is casually dressed with good hygiene. He is cooperative during the interview. No psychomotor agitation or retardation. Eye contact is good. Speech is normal rate and rhythm, fluent with no pressure. Mood is depressed but much less depressed than last week. Affect is constricted and consistent with with mood. Processes organized and goal-directed. Thought content: No evidence of suicidal or homicidal ideation. No evidence of hallucinations or delusions. He still endorses worry over his fianc?e and their relationship but this is less intense and less paranoid than last week. Reality testing is intact. Judgment is intact. Insight improving. Impulsivity low. Diagnoses: [] Anvik I: [] Major depressive disorder recurrent severe without psychosis, generalized anxiety disorder, rule out PTSD Anvik II: [] Deferred Anvik III: Chronic back pain, hypertension Anvik IV: Primary support issues [] Plan: [] We will step down to the IOP program today at [facility] behavioral health unit. He will continue the IOP as the structure, education, support, and group therapy are necessary to prevent worsening of his symptoms and possible need for rehospitalization. He endorses feeling safe today and if he is unable to feel safe he agrees to notify us at the IOP or go to the emergency room. He agrees to increase the Remeron to 30 mg p.o. daily nightly. In addition a prescription will be called in for trazodone 50 mg p.o. nightly. The risks options possible complications and side effects of the Remeron and trazodone were discussed with the patient and he understands and accepts these. I will see the patient in 2 weeks unless he needs to see me sooner. In addition he has an appointment with his PCP next week regarding his weight loss.
--- NOTE | 2019-03-31 09:06 | BH.SGPN.GN ---
Behaviors/Verbalizations/Mental Status: []Client alert and oriented, casually dressed and groomed. Eye contact good. Motor activity appropriate. Speech within normal limits. Affect congruent, mood euthymic. Thoughts linear, logical, no signs of hallucinations or delusions. Reviewed client?s symptom tracker, no risk for suicidal ideation, plan, or intent as of 03/31/19. Client Response/Progress/Benefit: []Client responded well to session, providing supportive statements to peers. Client reports feeling ?conflicted? today as client reports feeling more content today, but he shared he felt depressed and angry yesterday. Client shared he went to the fair to see his son yesterday and client?s [id number] yelled at him and made false accusations towards client. Client reported he coped well and walked away rather than escalating the situation. Client stated he was proud of himself for walking away and shared ?I wouldn?t have been able to do that in the past.? Client reported he has been catching himself when he has distorted thoughts which has helped client use healthy coping skills. Client also shared he is finding it ?a whole lot easier? to accept things in life that are out of client?s control. Client stated this is significant for him ?because I was in denial for a long time.? Appeared to benefit from reflecting on his generalization of coping skills. Progress noted in client?s reduced suicidal ideation and use of coping skills. Will continue IOP tx to prevent decompensation and continue to challenge negative thoughts.
--- NOTE | 2019-03-31 09:37 | BH.NOTE ---
BH: Inpatient Note - Notes Behavioral Health Inpatient Note: Per written order by Dr. Fernández, the following prescriptions were called into [facility] pharmacy in [place], [place]: Remeron 30mg PO QHS #30, 1 refill trazodone 50mg PO QHS #30, 1 refill Karthik Nguyen, MSN, RN
--- NOTE | 2019-03-31 10:11 | BH.SGPN.GN ---
Behaviors/Verbalizations/Mental Status: [Client alert and oriented, casually dressed and groomed. Eye contact good. Motor activity appropriate. Speech within normal limits. Affect congruent, mood dysthymic. Thoughts linear, logical, no signs of hallucinations or delusions. ] Client Response/Progress/Benefit: [Pt responded well to session, attentive and taking notes, providing input throughout. Pt connected with discussion on different types of anxiety, as well as the difference between ?normal? anxiety and anxiety disorders. Pt expressed relating to the group?s examples of the various ways anxiety manifests and symptoms associated with thoughts, physical symptoms, and safety behaviors. Pt gained awareness of personal physical symptoms which included: nausea, decreased appetite, and restlessness. Pt also identified safety behaviors he has engaged in that provide short term relief but increase anxiety over time. Pt?s safety behaviors included: isolating, shutting down, and sleeping. Pt appeared to benefit from gaining insight to safety behaviors and how anxiety manifests itself, as well as harmful impact of safety behaviors on mental health. Pt appears to be progressing with increasing awareness of his symptoms and ability to use healthy coping skills in those moments. Will continue IOP to maintain gains, further improve emotion regulation, and prevent decompensation.] Narrative Note: []
--- NOTE | 2019-04-01 11:13 | BH.SGPN.GN ---
Behaviors/Verbalizations/Mental Status: []Client alert and oriented, casual in appearance. Eye contact fair. Motor activity appropriate. Speech within normal limits. Affect flat, mood depressed. thoughts linear, logical, no signs of hallucinations or delusions. Client Response/Progress/Benefit: []Pt passive participant AEB pt not providing any input during discussion, however pt did appear to listen attentively to peers as shown by pt nodding his head to others comments. Pt appeared to connect with the different relaxation skills discussed. Pt completed worksheet identifying what relaxation skills currently use to manage anxiety and identified what skills he would be willing to try to help manage anxious symptoms. Pt identified he is willing to try the following relaxation skills: be more aware of his senses, meditation, body scan, breathing, and progressive muscle relaxation. Pt seemed to benefit from increased awareness of healthy skills to manage anxious symptoms and identifying skills willing to practice outside treatment environment. Pt progress hindered by pt continuing to have difficulty managing anxious and negative thoughts which lead to pt shutting down. Pt to continue IOP level of care to decrease depression, increase utilization of healthy coping skills, and prevent decompensation. Narrative Note: []
--- NOTE | 2019-04-02 08:28 | BH.MTP ---
Master Treatment Plan - Patient Information Program Physician:: Dr. Latia Juarez Primary Therapist:: Anthony Carlton - Psychiatric Diagnoses Psychiatric Diagnoses:: Major depressive disorder recurrent severe without psychosis. Generalized anxiety disorder Diagnosis Code(s):: f33.2, f41.1 - Estimated LOS Estimated LOS (in weeks):: 6 Problem/Goal #1 - Problem/Goal #1 Stated Goal:: Client will reduce depression, feelings of hopelessness, suicidal ideations, and isolation due to Major Depressive Disorder through Intensive Outpatient Program as evidenced through reduction in depression scores on DSM-5 cross cutting scales. Description of Barriers: stigma, trust issues, hx of trauma, recent break-up, Functional Impact: Depression has impacted ability to function at work ( on leave), his relationships, and socialization. - Objectives Objective #1 Stated Objective: Identify and replace 3-4 negative self-talk messages that reinforce depressive symptoms. Interventions: Through individual and group counseling will help client identify distorted, negative beliefs/thoughts about self and world and replace those messages with positive, affirmative, and more realistic messages. Discharge Criteria: Client will have achieved this goal when can identify at least 3 negative self-talk messages and replace those messages with positive, affirmative messages. Target Date: 05/12/19 Review Date: 04/28/19 Objective #2 Stated Objective: Client will learn and implement 2 conflict resolution and healthy communication skills to manage interpersonal problems which have been significant stressors in the past. Pt continues to want to resolve relationship with ex-fiance. Interventions: Throught individual and group counseling will teach client appropriate conflict resolution skills and healthy communication through education, modeling and behavior rehearsal. Discharge Criteria: Client will have achieved this goal when can verbalize and has practiced one conflict resolution and healthy commucniation skill on consistent basis. Target Date: 05/12/19 Review Date: 04/28/19 Problem/Goal #2 - Problem/Goal #2 Stated Goal:: Client will decrease ruminating thoughts which cause anxiety as evidenced by reduction in anxiety scales on DSM-5 cross-cutting scales. Description of Barriers: stigma, recent break-up, lack of trust, hx of trauma Functional Impact: Anxiety has led to isolative and controlling behaviors which has impacted relationships and socialization. - Objectives Objective #1 Stated Objective: Client will identify 2-3 internal coping strategies rather than external solutions to manage anxiety, ruminations, and irritability. Interventions: Through individual and group counseling will help client develop insight into warning signs and triggers and provided education on internal solutions to distress. Discharge Criteria: Client will have achieved this objective when can utilize at least 2 internal coping mechanisms to manage anxiety and ruminations. Target Date: 05/12/19 Review Date: 04/28/19 Objective #2 Stated Objective: Client will identify close relationships, discuss and create appropriate boundaries, and formulate a plan to implement and better manage the relationships with children and ex-fiance (At his request). Anxiety, paranoia, and mistrust manifest in relationships for patient. Interventions: Through individual and group cousneling will help client identify ways in which can execute more appropriate boundaries with children and others that are close, in order to help protect self-image and self-esteem, as well as gain important communication tools to help manage these relationships. Discharge Criteria: Client will have met this goal when able to describe improved relationships, or at least more positive feelings about these relationships and have better insight into ways can maintain good boundaries with ex-fiance Target Date: 05/12/19 Review Date: 04/28/19
--- NOTE | 2019-04-02 10:22 | BH.MDN_ITS ---
Multi-Disciplinary Note - Note 45-min Individual Time Started:: 09:00 Date: 03/29/19 Purpose of session/treatment goals addressed:: Reviewed current symptoms and progress. Due to cancellations IOP groups were canceled for today. Met with patient on individual basis. Eye Contact:: Good Motor Activity:: Appropriate Appearance:: Casual Speech:: Appropriate Mood:: Anxious, Depressed Affect:: Congruent Thoughts:: Linear, Logical, No evidence of hallucinations/delusions noted Staff Interventions:: Utilized [place] techniques to elicit change behaviors. Challenged mistaken beliefs at times. Modeled thought stopping and reframing. Developed strategies for managing ex this evening. Client Response:: Pt reports that his symptoms are continuing to improve. Was able to go 4 hours w/o texting or communicating with ex-fiance yesterday. Insight that this was positive as it allowed him to be mindful and focus on the present. He feels that at times his Ex will play mind games with him which is exhausting. Verbalized some positives to being single and not in a relationship. Indentifying some future goals stating I'm OK with not being in a relationship if things don't work out. Insight that the relationship itself was toxic on many levels and it was not all his fault.Hopeful. Is planning to return to work in the next 2 weeks. Is going to spend time at [employer] this evening with his kids. Problem-solved some issues with interacting with his ex- and her family. Was able to identify some coping skills to utilize. Risks/Concerns:: Denies any suicidal ideations, plan, or intent. Contracts for safety. Protective factors. Future-oriented. Progress Toward Goals/Plan:: Progress noted AEB by reports of decreased depression and ruminating thoughts. Begining to identify some benefits to recent relationship changes. Able to identify that limiting communication with ex is beneficial and that moving on from that relationship is also beneficial. Will continue in IOP to maintain safety, stablize mood, and prevent decompensation. Time Stopped:: 09:45
--- NOTE | 2019-04-02 10:44 | BH.COMM ---
Communication Note - Communication with Client Communication Note: Pt did not show up for IOP today. Several calls to his cell with no answer. Mailbox is full. Called emergency contact who reports that he recently spoke with patient and there is no concern for safety. Unclear the reason for the no show.
--- NOTE | 2019-04-05 09:10 | BH.SGPN.GN ---
Behaviors/Verbalizations/Mental Status: [] Eye contact is good. Motor activity is appropriate. Appearance is casual. Speech is Appropriate. Mood is depressed. Affect is flat. Thoughts are linear and logical. No evidence of psychosis. Reviewed daily check in sheet and no reports of suicidal ideations or intent. Client Response/Progress/Benefit: [] Pt participated at times during group discussion. Shared with group a setback this weekend with his ex. States I messed up and reverting back to some unhealthy communication styles. Difficulty with the uncertainty regarding the relationship and Thier future. Angry that one slip up and ex is asking for space. Insight that space would be beneficial for both her and him. Group helped him reframe the situation and challenged some negative thoughts. Feels in shock and numb, however verbalizes that this relationship may be toxic and perhaps separation would benefit his mental health. Group provided suggestions to decrease texting and to addressed thoughts and urges to text. Pt was receptive. Benefited from group support, encouragement, and feedback. Will continue in IOP to maintain safety, prevent decompensation, and improve functioning to return to work. Narrative Note: []
--- NOTE | 2019-04-05 10:16 | BH.SGPN.GN ---
Behaviors/Verbalizations/Mental Status: []Client alert and oriented, casually dressed and groomed. Eye contact fair. Motor activity appropriate. Speech within normal limits. Affect flat, mood depressed. Thoughts linear, logical, no signs of hallucinations or delusions Client Response/Progress/Benefit: []Client was engaged in the activity, but mostly withdrawn during group discussion. Client appeared to listen as the group worked together to define goals and identify the benefits of developing goals which included; moving forward in life, increasing self-esteem, gives purpose in life, sense of accomplishment, and increasing determination. Client also appeared to listen as the group identified barriers to setting and accomplishing goals which include; fear of failure, wanting instant results, unrealistic expectations, distorted thoughts, lack of motivation, and apathy. Attentive during education on developing SMART goals and provided examples. Benefited from increase awareness of goal-setting methods. Client currently endorses a more depressed mood, but he had been demonstrating progress towards his treatment goals. Will continue IOP tx to prevent further decompensation and improve emotional regulation especially in regards to interpersonal relationships.
--- NOTE | 2019-04-05 11:15 | BH.SGPN.GN ---
Behaviors/Verbalizations/Mental Status: []Client alert and oriented, casually dressed and neatly groomed. Eye contact good. Motor activity appropriate. Speech within normal limits. Affect flat, mood depressed and anxious. Thoughts linear, logical, no signs of hallucinations or delusions. Client Response/Progress/Benefit: []Pt attentive throughout, mostly quiet, contributed thoughts to discussion at times. Engaged in creating own mental health SMART goal. Pt identified goal is to take 20 minutes every evening to talk with his children about their days. Pt reported this goal will benefit him by improving relationship with his children, improving his communication skills, and modeling to his children importance of talking about thoughts and feelings. Pt identified potential barriers to accomplishing goal to include: children not wanting to talk, not enough time, and worried the conversation will get out of hand. Pt reported he will overcome identified barriers by making the goal a priority and reminding himself of the importance of completing the goal. Seemed to benefit from identifying a SMART goal and coming up with strategies to overcome potential barriers. Pt to continue IOP to increase use of healthy coping skills, increase emotional regulation, and prevent decompensation. Narrative Note: []
--- NOTE | 2019-04-05 14:16 | BH.MDN ---
Multi-Disciplinary Note - Note 45-min Individual Time Started:: 12:10 Date: 04/05/19 Purpose of session/treatment goals addressed:: Reviewed current symptoms and progress in IOP. Addressed treatment goals one and two. Eye Contact:: Good Motor Activity:: Appropriate Appearance:: Disheveled Speech:: Appropriate Mood:: Irritable, Depressed Affect:: Congruent Thoughts:: Linear, Logical, No evidence of hallucinations/delusions noted Staff Interventions:: Utilized [place] techniques to elicit change behaviors. Challenged thoughts and perceptions. Developed strategies and plan for the rest of the week. Client Response:: Pt shared that he had a text conversation that went bad with ex fiance. Admits that he made a mistake and reverted back to old behaviors where he questioned where and who ex was with. She requested space. Pt notes he feels betrayed and lied too stating I just made one slip-up. Insight and awareness of some cognitive distortions which are impacting his perception, actions, and emotions. States I feel numb and he is fearful that he will regress to where he was prior to inpt admission. States fuck it attitude and decreased motivation. Open to challenging thoughts and developed plan for the rest of today and this week. Still able to see the benefits to decreasing communication with ex and focusing on himself and his family. If it does work I'm OK with that. Improved mood reported after session. Agreed not to text ex today and respect her request for space. Risks/Concerns:: Denies any suicidal ideations, plan, or intent. Progress Toward Goals/Plan:: Regression related to recent stressors. Increased depression, stress, anger, and bouts of numbness since yesterday. Increased hopelessness and anhedonia. Struggles using skills outside of the program however reports that he is trying. Insight and awareness for need to give space to ex in order to benefit himself and her, however continued rumination and dwelling over potential loss of relationship. MH sypmtoms continue to impact daily functioning. Will continue in IOP to maintain safety, prevent decompensation, and improve functioning to return to work. Time Stopped:: 12:55
--- NOTE | 2019-04-07 09:02 | BH.SGPN.GN ---
Behaviors/Verbalizations/Mental Status: []Client alert and oriented, casual dress, hygiene tended to. Eye contact good. Motor activity appropriate. Speech within normal limits. Affect congruent, mood euthymic and positive. Thoughts linear, logical, no signs of hallucinations or delusions. Reviewed client?s symptom tracker, no signs of suicidal ideation, plan, or intent as of today. Client Response/Progress/Benefit: []Pt was an active participant in group discussion, providing input and openly processing with the group. Emotion for today is happy. Pt stated he has been struggling with anxious thoughts about his ex-fiance. Pt reported he has struggled with giving her space, which has led to increased desire to text her and have many anxious thoughts. Pt noted progress as accepting ex-kristin's wishes for space from him. Pt stated he hasn't contacted his ex in 3 days, which he stated has resulted in him feeling happy and relieved. Pt reported when he has an anxious thought about his ex, he can easily challenge the thought and move on with his day. Pt stated he has been focusing on his own needs and spending quality time with his children. Additional positive as going to a doctor's for a check-up that he has avoided for the past 5 years. Progress noted in application of healthy coping skills and strategies outside of treatment environment. Continued IOP tx recommended to maintain gains, prevent decompensation, and continue to identify and reframe distorted thoughts. Narrative Note: []
--- NOTE | 2019-04-07 10:05 | BH.SGPN.GN ---
Behaviors/Verbalizations/Mental Status: [Client alert and oriented, casually dressed and appropriate grooming. Eye contact good. Motor activity appropriate. Speech within normal limits. Affect congruent, mood euthymic. Thoughts linear, logical, no signs of hallucinations or delusions. ] Client Response/Progress/Benefit: [Client was an active participant in group discussion and activity. Engaged during discussion, reflected on the quote and noted agreement with others discussing change as uncomfortable but necessary. Indicated feeling this way about beginning IOP tx and accepting changes in his relationship. Shared that fighting change made him angry and more depressed but learning to accept it has aided in improving self-care and his ability to communicate with family. Worked with the group to identify benefits to making changes in our lives which included: improving one?s mental health, increasing confidence, personal growth, and reducing unhealthy coping skills. Group identified barriers to change or what keeps us from making changes which included: it is easier to not change, lack of motivation, past negative experiences, lack of awareness as to how to make changes, limited support, negative thinking, and fear. Client participated along with group in activity where they identified and discussed the emotions related to change. Client expressed that change makes her feel anxious as she doesn?t know what to expect and does not like making decisions. She was attentive during psychoeducation on the change process and provided input regarding different emotions that may be experienced throughout the change process. Pt benefited from increased awareness and understating of emotions, benefits, and barriers related to change. Progress noted as shown by client?s report of reduction of depression and irritability since beginning IOP tx. Will continue IOP tx to promote gains, continue to improve mental health sx management, and reinforce healthy coping skills.] Narrative Note: []
--- NOTE | 2019-04-07 11:10 | BH.SGPN.GN ---
Behaviors/Verbalizations/Mental Status: []Client alert and oriented, neatly dressed and groomed. Eye contact good. Motor activity appropriate. Speech within normal limits. Affect congruent, mood euthymic. Thoughts linear, logical, no signs of hallucinations or delusions Client Response/Progress/Benefit: []Client responded well to session, attentive and providing good insight to discussion. Client participated in the activity and processed emotions and barriers associated with making change. Client appeared to connect with discussion on weighing the pros and cons associated with change and benefited from learning to do so through use of decisional balance sheet. Identified a change he would like to make to improve mental health as: accepting that ?this is my life now? regarding his relationship. Client reported potential benefits of change as: giving his partner the space she needs, improving his relationship with his son, and finding ?a new happy me.? While the costs of not making the change included: ?I will lose my shit all the way? and get into a worse mental state. Progress noted in ability to identify how making this change may promote additional healthy behaviors and thinking patterns. Recommended continued IOP to continue to promote use of healthy coping skills and improve interpersonal effectiveness skills.
--- NOTE | 2019-04-07 12:05 | BH.VS.HW ---
Vital Signs - Pulse Pulse Rate: 84 - Respirations Respiratory Rate: 16 - Blood Pressure Blood Pressure: 136/92 - Comments Comment: started on new antihyptensive, BADILLO improved
[2019-04-07 12:12] VITALS: BP 136/92; PULSE 84; RESP 16
--- NOTE | 2019-04-09 09:03 | BH.SGPN.GN ---
Behaviors/Verbalizations/Mental Status: []Client alert and oriented, casual dress, hygiene tended to. Eye contact fair. Motor activity appropriate. Speech within normal limits. Affect flat, mood dysthymic. Thoughts linear, logical, no signs of hallucinations or delusions. Reviewed client?s symptom tracker, no signs of suicidal ideation, plan, or intent as of today. Client Response/Progress/Benefit: []Pt appeared to listen attentively to others and openly shared thoughts and feelings with group. Emotion for today is tired. Pt identified a positive as following through with completing is sleep study last night. Pt stated he hasn't been to the doctor in many years, so is proud of himself for actually following through with taking care of his health. Pt reported current stressor is having his sons staying with their mom his week so worried how he will do without having the distraction of his kids. Progress noted with following through with self-care by going to the doctors. Continued IOP tx recommended to improve consistent utilization of skills, prevent decompensation, and continue to improve emotion regulation skills. Narrative Note: []
--- NOTE | 2019-04-09 10:15 | BH.SGPN.GN ---
Behaviors/Verbalizations/Mental Status: [] Eye contact is good. Motor activity is appropriate. Appearance is casual. Speech is Appropriate. Mood is depressed. Affect is flat. Thoughts are linear and logical. No evidence of psychosis Client Response/Progress/Benefit: [] Participated at times in group discussion and activity. Attentive during psycho-education. Worked with group to define stress. Group settled on the definition of a reaction to change. Group also identified warning signs to stress and had a discussion on how certain types of stressors can actually be beneficial. Attentive during psycho-education on Eustress (motivates, encourages growth) and distress (overwhelmed, hopelessness, low energy, anger, worry). Pt was given a worksheet in which she identified the current stressors and their impact on her life and her mental health which she shared with the group. Narrative Note: []
--- NOTE | 2019-04-09 11:15 | BH.SGPN.GN ---
Behaviors/Verbalizations/Mental Status: [Client alert and oriented, casual appearance and appropriate grooming. Eye contact good. Motor activity appropriate. Speech within normal limits. Affect congruent, mood dysthymic and anxious. Thoughts linear, logical, no signs of hallucinations or delusions.] Client Response/Progress/Benefit: [Pt engaged in session as evidenced by pt listening attentively to others, participating in activity, and providing input throughout session. Pt worked with the group to complete the challenge activity and did well to remain engaged while being challenged to manage in the moment stressors. Pt ability to take on a leadership role as well as apply stress management skills indicates progress. Pt was able to identify barriers encountered that may also impact managing stress in daily life, indicating that creating unnecessary barriers can further increase stress and prevent healthy coping. Pt actively listening during discussion about the 4 A's of managing stress. Expressed wanting to utilize acceptance in order to reduce relationship stress, as well as adapt his expectations and outlook regarding stressors of his kids and finances. Pt seemed to benefit from increased awareness of the impact of stress on mental health and increasing repertoire of stress management strategies. Pt to continue in IOP to prevent decompensation, continue promote use of healthy coping and thought challenging skills, and decrease symptoms of depression.] Narrative Note: []
== END 2019-04-12 23:59 ==
LOC: BHIOP 09:00
PROVIDERS: Family Provider Family Medicine; PCP Family Medicine; Referring Provider Psychiatry & Neurology Psychiatry; Visit Provider Psychiatry & Neurology Psychiatry
DX: F33.2 Major depressive disorder, recurrent severe without psychotic features (principal); F41.1 Generalized anxiety disorder; G89.29 Other chronic pain; M54.9 Dorsalgia, unspecified; I10 Essential (primary) hypertension; Z79.899 Other long term (current) drug therapy
CPT/HCPCS: H0035; 90834; 90853

== ENCOUNTER 2019-04-13 09:00 | Outpatient (RCR) | payer OTHER, MEDICAID, SELFPAY ==
[2019-04-13 01:15] VITALS: BP 136/92; PULSE 84; RESP 16
--- NOTE | 2019-04-13 10:10 | BH.SGPN.GN ---
Behaviors/Verbalizations/Mental Status: []Client alert and oriented, neatly dressed and groomed. Eye contact good. Motor activity appropriate. Speech within normal limits. Affect flat, mood dysthymic. Thoughts linear, logical, no signs of hallucinations or delusions Client Response/Progress/Benefit: []Client active participant in group AEB client participating in activity and sharing when prompted. Group worked together to identify barriers to making changes or taking action in their lives which included: fear of the unknown, the perception of others, fear of leaving one?s comfort zone, overthinking, and lack of motivation. Client shared loss of control is the most difficult barrier to change for him. Group also identified the benefits of change which included; improved relationships, improved mental wellness, increased confidence, and feelings of accomplishment. Client shared things he wants to take control over which included: overthinking, negative thoughts, stress, and fear of failing. Benefited from group through awareness of personal areas he wants to improve and benefits to taking action towards mental wellness. To continue IOP level of care to further reduce negative thinking and further improve daily functioning.
--- NOTE | 2019-04-13 13:52 | BH.MDN ---
Multi-Disciplinary Note - Note 60-min Individual Time Started:: 11:10 Date: 04/13/19 Purpose of session/treatment goals addressed:: Reviewed current symptoms and progress in IOP. Addressed treatment plan goals 1 and 2. Eye Contact:: Fair Motor Activity:: Restless Appearance:: Disheveled Speech:: Appropriate Mood:: Anxious, Depressed Affect:: Congruent Thoughts:: Linear, Logical, No evidence of hallucinations/delusions noted Staff Interventions:: Utilized NC techniques to elicit change behaviors. Developed and reviewed thought stopping techniques and affirmation to utilize. Client Response:: Pt reports that yesterday was a bad day. Endorses excessive rumination and dwelling on negative thoughts which led to isolative behaviors and significant depression. Encountered some triggers or reminders of his ex-fiance which triggered thoughts about the future of thier relationship. He continues to respect her desire for space and has only texted her 4 times in the past 5 days. Reports that he would like the relationship to work out however is OK if it doesn't. Admits that he did not utilize any skills learned in IOP and let these thoughts consume him. Open to discussing strategies with therapist on thought reframing and trigger identification. Today notes improved mood however has anxiety about starting back to work this week. Anxious about co-workers. Open to discuss this with therapist. Risks/Concerns:: No risks or concerns noted. Progress Toward Goals/Plan:: Progress noted in regards to improved relationship with his children. He sees this as a positive aspect of focusing less on his ex-fiance and thier relationship. Has decreased communication and contact with ex-fiance at her request and admits that this has actually improved his mental health. Inconsistent use of skills as he reported significant depression yesterday and did not attempt to use skills which have been effective in the past 2 weeks. Remains uncertain on the status with his ex which increases his anxiety and depression. Mood has stablized since hospitalization and he is set to return to work this week on reduced schedule. Plan is to continue in [facility] to maintain safety, prevent decompensation, and help with transition back to work. Time Stopped:: 12:00
--- NOTE | 2019-04-14 09:04 | BH.SGPN.GN ---
Behaviors/Verbalizations/Mental Status: []Client alert and oriented, casual dress, hygiene tended to. Eye contact good. Motor activity appropriate. Speech within normal limits. Affect flat and mood depressed. Thoughts linear, logical, no signs of hallucinations or delusions. Reviewed client?s symptom tracker, no signs of suicidal ideation, plan, or intent as of today. Client Response/Progress/Benefit: []Pt was a passive participant in group discussion, sharing when elicited by therapist, appeared to listen attentively to others. Emotion for today is lonely. Pt indicated he is struggling because is anxious about returning to work tomorrow. Pt stated he will being going to a new job site but is still worried about what the other workers will know about him and anxious about having a long car ride to work which will give me a lot of time to overthink. Pt stated another stressor is feeling lonely on the weeks that when his sons are staying with their mother. Pt reported he recognizes his mood is more depressed when his sons are with their mother. Pt noted progress as showing up to IOP despite wanting to stay in bed this morning. Additional positive as following through with getting his car fixed instead of ignoring the problem. Progress is variable, often reports improved mood on the weeks his sons are with him and depressed when sons are with their mother. Continued IOP tx recommended to maintain gains, prevent decompensation, and increase consistent utilization of healthy skills. Narrative Note: []
--- NOTE | 2019-04-14 11:15 | BH.SGPN.GN ---
Behaviors/Verbalizations/Mental Status: []Client alert and oriented, casually dressed and groomed. Eye contact good. Motor activity appropriate. Speech within normal limits. Affect constricted, mood anxious. Thoughts linear, logical, no signs of hallucinations or delusions Client Response/Progress/Benefit: []Client responded well to session, quiet, but participating in the activity. Client able to connect how managing anger takes patience, calming skills, and multiple efforts. Client reported he is continuing to try and improve how he manages his anger. Group identified the benefits of effectively managing anger which included; advocating for oneself, reducing consequences, reducing mental health symptoms, and expressing one?s needs. Client appeared attentive as the group identified coping skills to more effectively manage anger which included; deep breathing, self-compassion, taking a step back, DDD, challenging perspective, and using S.T.O.P. Client appeared to benefit from gaining coping skills to more effectively manage anger. Progress noted as client reports plan to return to work tomorrow. However, he can continue to benefit from IOP level of care to promote emotional regulation and increase daily functioning.?
--- NOTE | 2019-04-21 09:05 | BH.SGPN.GN ---
Behaviors/Verbalizations/Mental Status: [Client alert and oriented, casual dress, hygiene tended to. Eye contact good. Motor activity appropriate. Speech within normal limits. Affect congruent, mood euthymic. Thoughts linear, logical, no signs of hallucinations or delusions. Reviewed client?s symptom tracker, no signs of suicidal ideation, plan, or intent as of today. ] Client Response/Progress/Benefit: [Pt was an active participant AEB engagement in group discussion and openly processing with the group. Emotion for today is peaceful as pt indicated feeling more positive lately and as though he has been able to begin seeing progress in improving his mental health sx.. Pt went on to discuss mental health wins as returning to work without problem and successfully managing his emotions and anxiety levels in doing so. Additional win identified as being able to successfully address frustrations with his sons? behavior in a rational and calm way. Pt indicated that managing irritability when faced with disciplining them continues to be a stressors, however feels he is making steady progress in this area. Progress noted in pt ability to actively apply emotion regulation skills outside of tx environment. Continued IOP tx recommended to continue to promote application of healthy coping skills, increase consistent communication with supports, and prevent decompensation.?] Narrative Note: []
--- NOTE | 2019-04-21 10:18 | BH.SGPN.GN ---
Behaviors/Verbalizations/Mental Status: []Client alert and oriented, neatly dressed and groomed. Eye contact good. Motor activity appropriate. Speech within normal limits. Affect congruent, mood euthymic. Thoughts linear, logical, no signs of hallucinations or delusions. Client Response/Progress/Benefit: []Client active participant AEB client providing input throughout session, engaged in group activity and listened attentively to peers. Client reported ?if we resist change eventually it will break you down.? Client shared he has learned to be resilience, especially for things he cannot control. Client stated he now has a mindset of ?no matter what life throws at me I can overcome it.? Client discussed connections between activity and barriers/supports to development of a resilient lifestyle. Client agreed with peers that one can learn to become more resilient throughout life. Client benefitted from brainstorming benefits of being resilient which included: stronger than before, improving ability to cope, builds confidence and self-esteem, and being open-minded. Client reported negative thinking can prevent increasing resilience. Client progressing as shown by his reduced anger and self-report of improved ability to cope with stressors. Will continue IOP tx to promote gains and application of healthy coping skills as he returns to work.
--- NOTE | 2019-04-21 11:20 | BH.SGPN.GN ---
Behaviors/Verbalizations/Mental Status: []Client alert and oriented, casually dressed and groomed. Eye contact good. Motor activity appropriate. Speech within normal limits. Affect congruent. Mood euthymic. Thoughts linear, logical, no signs of hallucinations or delusions. Client Response/Progress/Benefit: []Client responded well to session, providing input during discussion and listening attentively to peers. Client engaged in the group activity as shown by client working cooperatively with others and providing ideas to group. When processing activity client connected importance of not giving up and willingness to try new ideas as strategies that helped group be successful. Worked with group to identify how the group utilized all of the resiliency factors to help them overcome a challenge that initially seemed impossible. Client reported he wants to work on making connections with others. Client stated he has isolated himself from others, but now is willing to reach out to others to increase social connection. Client appeared to benefit from identifying personal resilience factors. Client to continue IOP maintain gains, decrease negative thinking and prevent decompensation. Narrative Note: []
--- NOTE | 2019-04-22 09:10 | BH.SGPN.GN ---
Behaviors/Verbalizations/Mental Status: [] Eye contact is good. Motor activity is appropriate. Appearance is casual. Speech is Appropriate. Mood is euthymic. Affect is full. Thoughts are linear and logical. No evidence of psychosis. Reviewed daily check in sheet and no reports of suicidal ideations or intent. Client Response/Progress/Benefit: [] Pt participated at times during group discussion. Emotion for today is happy. Shared with the group that he met with outpatient therapist yesterday for the first time as part of his aftercare plan. Reports that the session went well which helped ease the anxiety of discharge from [facility]. He talked at length about learning to let go of control over the past few weeks. He discussed how acceptance and focusing on himself, his thoughts, and his actions is the most beneficial. Insight that he cannot control others thoughts, actions, or emotions. Reframing and challenging thoughts. Admits to slip-ups at times. Progress noted per pt report. Benefited from group feedback, encouragement, and support. Will continue in IOP to prevent decompensation, transition back to work full-time, and stabilize emotions. Narrative Note: []
--- NOTE | 2019-04-22 11:15 | BH.SGPN.GN ---
Behaviors/Verbalizations/Mental Status: [Client alert and oriented, casually dressed and appropriately groomed. Eye contact fair to good. Motor activity appropriate. Speech within normal limits. Affect congruent, mood dysthymic. Thoughts linear, logical, no signs of hallucinations or delusions. ] Client Response/Progress/Benefit: [Pt responded well to session, actively listening and willing participant in both discussion and worksheet activity. Worked with the group to further process the activity and discussion on the importance of self-care in management mental health and preventing burnout. Pt engaged in the discussion and self-assessment of the different areas of self-care, noting he has struggled with social components of self-care and has often turned to isolating instead. Pt reports connecting with discussion on the mental health effects of not making self-care a priority. Pt set a goal to improve in the area of spiritual self-care by increasing time spent outside in nature as well as reading inspirational literature. Pt appeared to benefit from increasing awareness of how he can improve self-care balance. Pt progress noted in pt ability to identify impact current lack of self-care activities and avoidance has had on mental health and maintaining depression/irritability. Recommended continued IOP to continue to reduce depression, improve emotion regulation and self-care skills, and prevent decompensation.] Narrative Note: []
--- NOTE | 2019-04-22 12:20 | BH.MDN_ITS ---
Multi-Disciplinary Note - Note 45-min Individual Time Started:: 10:15 Date: 04/22/19 Purpose of session/treatment goals addressed:: Reviewed current symptoms and progress in IOP. Eye Contact:: Good Motor Activity:: Appropriate Appearance:: Casual Speech:: Appropriate Mood:: Euthymic Affect:: Full Thoughts:: Linear, Logical, No evidence of hallucinations/delusions noted Staff Interventions:: Utilized LA techniques to elicit change behaviors. Processed thoughts regarding current relationship. Client Response:: Pt reports that his transition back to work went well last week. No issues with concentration, focus, stress, depression, or anxiety. His uncertainty regarding his relationship continues to be primary focus for him and the ultimate trigger to his hospitalization. He discussed some recent insight and the possibility of ending the relationship. Talked about how his life would be different if he decided to step away from relationship. Able to indentify some positives to this as well as some negatives. Overall fucntioning well. No overwhelming emotions noted this past week despite continued relationship issues. Risks/Concerns:: none noted Progress Toward Goals/Plan:: Progress noted per pt report. Mood has been erratic and at times dependent on his level of engagement with ex. 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 More engaged and less distraction in IOP groups. Thoughts, mood, and actions are becoming less dependent on his ex and her current engagement or communication with him. He reports feeling more independent and less stressed with decreasing communication with her ad is actually considering breaking things off. Functions better during weeks with increased distractions and when spending time with his sons. Plan is to continue with IOP to maintain gains and transition back to work. Plan is to discharge next week. Time Stopped:: 11:00
--- NOTE | 2019-04-23 09:02 | BH.SGPN.GN ---
Behaviors/Verbalizations/Mental Status: []Client alert and oriented, casual dress, hygiene tended to. Eye contact good. Motor activity appropriate. Speech within normal limits. Affect congruent, mood euthymic and positive. Thoughts linear, logical, no signs of hallucinations or delusions. Reviewed client?s symptom tracker, no signs of suicidal ideation, plan, or intent as of today. Client Response/Progress/Benefit: []Pt was an active participant in group discussion, providing input and openly processing with the group. Emotion for today is excited. 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 Pt stated he has thought about going back to school for many years, but has let fear hold him back. Pt reported he recognizes it is not too late to pursue his dreams. Pt identified another positive as getting out of bed this morning to attend IOP despite feeling exhausted. Pt reported current stressor is adding college classes to his schedule. Pt stated although starting college classes is a stressor he believes it will be manageable. Progress noted in application of challenging negative thoughts and using healthy coping skills outside treatment environment. Continued IOP tx recommended to maintain gains, prevent decompensation, and continue to improve emotion regulation skills. Narrative Note: []
--- NOTE | 2019-04-23 10:18 | BH.SGPN.GN ---
Behaviors/Verbalizations/Mental Status: [Client alert and oriented, casual dress, hygiene tended to. Eye contact good. Motor activity appropriate. Speech within normal limits. Affect congruent, mood euthymic. Thoughts linear, logical, no signs of hallucinations or delusions. ] Client Response/Progress/Benefit: Pt receptive of session, engaged throughout. He did well to work with the group to reflect on the quote and discussed the ways in which perspective can impact mental health and ability to make personal progress in life. Pt indicated that perspective can impact self ?confidence levels and lead to isolation when struggling with doubt and negative thinking. Expressed that a positive perspective can reduce use of self-deprecating thoughts. Pt did well to engage in the challenge activity and was an active participant in identifying how perspective impacted ability to complete the task at hand. Pt appeared to benefit from increasing understanding of mental health benefits of a positive perspective and potential consequences to progress when perspective is negative or pessimistic. Pt progress noted in report of decreased depression and improved confidence levels. Recommended continued IOP tx to promote continued progress, further promote application of skills learned, and prevent decompensation.] Narrative Note: []
--- NOTE | 2019-04-23 11:15 | BH.SGPN.GN ---
Behaviors/Verbalizations/Mental Status: []Client alert and oriented, neatly dressed and groomed. Eye contact good. Motor activity appropriate. Speech within normal limits. Affect congruent, mood euthymic. Thoughts linear, logical, no signs of hallucinations or delusions. Client Response/Progress/Benefit: []Client responded well to session, participating during discussion and providing good insight. Group discussed the mental health benefits of recognizing strengths which included; improved self-esteem, better relationships, and increased resilience. Client reported he has been able to identify more strengths by challenging his negative thinking. Group identified the barriers that have prevented them from acknowledging their strengths and successes. These barriers included; negative thoughts, self-depreciation, mistaken beliefs, and not feeling allowed to acknowledge strengths. Group identified strategies to overcome barriers that prevent them from seeing strengths. These strategies included; keeping track of progress, practicing self-compassion, and challenging distortions. Client able to identify personal strengths he possesses which included; honesty, humor, kindness, bravery, and love of learning. Client reported his bravery has helped client take chances that have improved his mental health. Appeared to benefit from recognizing personal strengths and identifying strategies to overcome barriers. Will continue IOP tx to promote use of healthy coping skills to increase mood stability.
--- NOTE | 2019-04-28 09:03 | BH.SGPN.GN ---
Behaviors/Verbalizations/Mental Status: [Eye contact is good. Motor activity is appropriate. Appearance is casual. Speech is Appropriate rate and tone. Mood is euthymic. Affect is congruent. Thoughts are linear and logical. No evidence of psychosis. Reviewed daily check in sheet and pt denies any active SI, plan, or intent. ] Client Response/Progress/Benefit: [Pt responded well to session, actively engaged throughout and providing supportive feedback. Pt indicated current emotion as ?spunky? and indicated being in a good mood this morning. He shared this is further impacted by being able to more noticeably see personal progress towards improving his mental health. Pt did well to identify mental health positives ad practicing opposite action and use of positive self-talk to improve motivation. Additional win described as spending time connecting with his father. Pt recommended continued IOP tx to prevent decompensation, decrease depression, and promote ongoing application of healthy coping skills.] Narrative Note: []
--- NOTE | 2019-04-28 11:20 | BH.SGPN.GN ---
Behaviors/Verbalizations/Mental Status: []Client alert and oriented, neatly dressed and groomed. Eye contact good. Motor activity appropriate. Speech within normal limits. Affect congruent, mood euthymic. Thoughts linear, logical, no signs of hallucinations or delusions. Client Response/Progress/Benefit: []Client responded well to session, active participant. Contributed to ongoing discussion of the different conflict resolution styles, drawbacks, and appropriate times of use. Client stated when he first started IOP he was ?totally competing.? Client shared he would not listen to others and had the mindset of ?I?m always right.? Client stated now he realizes that ?that got me nowhere.? and he has been able to be more collaborative. Client reported because of this shift in his conflict resolution style, his mental health has improved. Client engaged in the activity and did well to practice using a collaborative approach. Client attentive during psychoeducation on different conflict resolution strategies and selected listening as the strategy he wants to work on this week. Client appeared to benefit from increasing awareness of his personal conflict resolution style and from learning ways to increase healthy conflict resolution. Progress noted as client reports reduced anger and improved emotional regulation skills. Will continue IOP throughout the week to promote maintenance and establish aftercare.?
--- NOTE | 2019-04-28 12:13 | PCM.BH.PN_ITS ---
Progress Note Progress Note: [] History of Present Illness/Interim History: [Patient is a 38-year-old male seen in follow-up for depression and anxiety at the [facility] program. I last saw the patient 3 weeks ago and at that time his Remeron was increased from 15 mg nightly to 30 mg p.o. nightly. He was also given trazodone for sleep. The patient states that he is feeling and doing much better. He describes his mood as much less depressed. He is back to work and is able to function well at work and at home. He is no longer losing weight and his appetite is much improved. He is also being more active and is much more motivated to do things around the house. He denies ruminating negatively. He denies worrying about his relationship with his fianc?e anymore. He realizes this relationship may not last and he is okay with this. He is enjoying being with his son's. He is currently in his last week here at the [facility] program and he has started with a new counselor who he is seen one time.] Current Psychiatric Medications: [Remeron 30 mg p.o. nightly.; trazodone 50 mg p.o. nightly] [] Mental Status Examination: She is a 38-year-old male who appears casually dressed and groomed with good hygiene. He has no psychomotor agitation or retardation. He has good eye contact and speech is normal rate and rhythm. His mood is only mildly depressed. Affect is consistent with mild depression and is relatively euthymic. Thought processes organized and goal-directed. Thought content: No evidence of suicidal or homicidal ideation. No evidence of hallucinations or delusions. Judgment is intact. Insight: Good. Impulsivity low [] Diagnoses: [] Dubberly I: []. Your depressive disorder recurrent moderate, generalized anxiety disorder Dubberly II: [Deferred] Dubberly III: [Chronic back pain, hypertension Dubberly IV: Primary support issues] Plan: [] She will finish his last week here at [facility]. He will continue to follow-up with his new outpatient psychiatric and medical providers. He feels that the structure, education, support and therapy has helped him tremendously during his stay at the [facility] program. He will continue to benefit from this as the week progresses. He felt safe during the interview and if he is unable to feel safe he agrees to notify us at the [facility] or go to the emergency room. The risks, options, and possible complications and side effects of his medications were again discussed with him and he understands and accepts these. He will be discharged later this week if he continues to remain stable.
--- NOTE | 2019-04-29 09:10 | BH.SGPN.GN ---
Behaviors/Verbalizations/Mental Status: [] Eye contact is good. Motor activity is appropriate. Appearance is neat. Speech is Appropriate. Mood is depressed. Affect is flat. Thoughts are linear and logical. No evidence of psychosis. Reviewed daily check in sheet and no reports of suicidal ideations or intent. Client Response/Progress/Benefit: [] Pt participated at times. Emotion for today is edgy. Notes that he decided last night that he was going to end is communication and relationship with his ex-fiance. Discussed the regression of the relationship and feels that at this point it is toxic. Believes that this will be beneficial for his MH and allow him to decrease anxiety related to her motivations. Stated I can create my own happiness. and I don't want to rely on others to make me happy. Recent stressors is that his aunt . Noted grief related to her and ending relationship with ex. Progress noted. Benefited from group support, encouragement, and feedback. Will continue in IOP to prevent decompensation. Plan is to discharge either tomorrow or early next week. Narrative Note: []
--- NOTE | 2019-04-29 10:10 | BH.SGPN.GN ---
Behaviors/Verbalizations/Mental Status: []Client alert and oriented, disheveled appearance. Eye contact good. Motor activity appropriate. Speech within normal limits. Affect flat, mood depressed. Thoughts linear, logical, no signs of hallucinations or delusions. Client Response/Progress/Benefit: []Client responded somewhat well to session, appeared withdrawn, but receptive to gentle challenging from therapist.? Group identified examples of potential crisis to include emergencies, hardships, and . Connected with discussion on how coping with external crisis by using unhealthy coping skills could lead to personal crisis. Client acknowledged that he was showing some personal warning signs during group as his hoodie was on and he was disengaged. Group identified unhealthy coping skills to include; substances, isolation, impulsive behaviors, yelling, and pushing people away.? Group identified warning signs for crisis which included; increased sleep, irritability, decreased appetite, and negative thoughts. Client completed the personal warning signs worksheet and identified crisis warning signs to include; negative thinking, uncontrollable worries, and racing thoughts. Benefited from group by increasing awareness of crisis and personal warning signs. Progress seen as client?s symptoms have overall significantly decreased. Client reports feeling depressed today due to breaking up with his fianc?, but he reports he feels able to manage these more effectively. Narrative Note: []
--- NOTE | 2019-04-29 12:17 | BH.NOTE ---
BH: Inpatient Note - Notes Behavioral Health Inpatient Note: Per written order from Dr. Fernández, the following prescriptions were called into [facility] pharmacy in [place], [place]: Remeron 30mg PO QHS, #30, 1 refill trazodone 50mg PO QHS, #30, 1 refill Karthik Nguyen, MSN, RN
--- NOTE | 2019-04-29 15:13 | BH.MDN ---
Multi-Disciplinary Note - Note 45-min Individual Time Started:: 11:15 Date: 04/29/19 Purpose of session/treatment goals addressed:: Reviewed current symptoms and progress in IOP. Addressed treatment goals 1 and 2. Completed DSM cross-cutting scales. Discussed discharge and aftercare. Eye Contact:: Good Motor Activity:: Appropriate Appearance:: Casual Speech:: Appropriate Mood:: Anxious Affect:: Congruent Thoughts:: Linear, Logical, No evidence of hallucinations/delusions noted Staff Interventions:: Provided support and encouragment for recent decisions. Handed out and reviewed DSM-scales. Client Response:: Pt reports that he has decided to end his communication with ex-barneyance. Reports that at this point thier relationship has become toxic and he cannot identify any positives or reasons to stay. He is anxious and on edge as he sent the final text to his ex an hour ago. He reviewed the text and reports that once he sees that she read it he will block her. Notes that she has been increasingly distant and not engaged when they communicate. He notes that the worry, stress, and head games associated with thier relationship has been detrimental to his mental health. Stated several times that he now understands that his happiness does not need to be based on others. Perception that he is not going allow other people to take up space in his head and control. Notes this this new perspective has allowed him to sen boundaries in his life in other conflicted relationship. Overall he believes this to be an positive decision. Risks/Concerns:: No risks or concerns noted. Progress Toward Goals/Plan:: Progress noted. Pt completed DSM cross-cutting scales which showed a 63% reduction in symptoms. Noted reductions in anxiety, anger, and depression. Pt is transitioning back to work well in the past 2 weeks. Coming to terms with his relationship ending which was original trigger to hospitaliztion. Increased inpendence, increased socialization, decreased anxiety/depression, and increase in healthy coping skills. Consistent use to skills and thought challenging. Continues to struggle with depression and anxiety however decreased intensity, frequency, and duration. We discussed discharged tomorrow. He is agreeable however it remains unclear how this evening will go after he initiated no communicaion with ex. Will evaluate further tomorrow however expected discharge. Time Stopped:: 12:00
--- NOTE | 2019-04-29 15:58 | BH.DS_ITS ---
Discharge Summary - Demographics Date of Admission:: 03/29/19 Discharge Date: 04/30/19 Presenting Problems at Admission:: Pt is a 38 year old male with hx of MDD. Recently admitted to [facility] from 03/17/19-03/18/19 due to suicidal ideations with thoughts of methods to jump infront of traffic. Ongoing psychosocial stressors mainly involving relationship with now ex-fiance. EX moved out of the house they shared on 03/17/19 while pt was at work. Upon hearing about this pt walked off work site and began to have suicidal ideations with thoughts to jump into traffic. Family reached out to him and he eventually went to seek help. Hx of suicidal gesture 7 years ago while going through a divorce from his . Pt held gun to his head. Guns are locked up by his father currently. Notes that hospitalization was helpful however needs continued support as he transitions back to life and work. Ex-fiance and pt continue to speak and it is unclear the status of this relationship. Endorses low energy, low motivation, isolative behaviors, irritability, poor sleep, poor appetite, and anhedonia. Denies active suicidal ideations, plan, or intent. Denies HI or psychosis. Social use of alcohol. Discharge Diagnoses:: MDD, recurrent, moderate. FAHAD Reason for Discharge:: No longer meets criteria for [facility] level of care. - Treatment Progress During Treatment & Response: Significant progress noted. Pt attened to program consistenly and participated in groups and individual counseling. Pt completed DSM cross-cutting scales which showed a 63% reduction in symptoms. Per treatment plan goals pt displayed a signficant reduction in depression (71%) and anxiety(63%). Also noted a 75% reduction in anger. Pt is transitioning back to work well in the past 2 weeks. Coming to terms with his relationship ending which was original trigger to hospitaliztion. Increased inpendence, increased socialization, decreased anxiety/depression, and increase in healthy coping skills. Consistent use to skills and thought challenging. Continues to struggle with depression and anxiety however decreased intensity, frequency, and duration. Issues Still to be Addressed:: Grief associated with recent relationshop ending, depression, managing stress and anger, and consistent use of health coping skills. Discharge Recommendations/Instructions:: Pt has follow-up appointment with outpatient therapist Minerva mims Price in 2 weeks. He has not followed through with setting up appointment with psychiatrist as discussed. He has refills for medication for the next 30 days. Given number to [facility] again to follow-up. Discharge Handout: Complete Discharge Handout with client on aftercare options and continuity of care.
--- NOTE | 2019-04-30 09:03 | BH.SGPN.GN ---
Behaviors/Verbalizations/Mental Status: []Client alert and oriented, neatly dressed and groomed. Eye contact good. Motor activity appropriate. Speech within normal limits. Affect full, mood euthymic. Thoughts linear, logical, no signs of hallucinations or delusions. Reviewed client?s symptom tracker, no risk for suicidal ideation, plan, or intent as of 04/30/19. Client Response/Progress/Benefit: []Client responded well to session, positive and supportive throughout session. Client reports feeling ?giddy? today. Client shared it is his last day in [facility] and he was able to reflect on his progress. Client identified his progress which included; better maintenance of coping skills, less isolation, less anger, and better emotional regulation skills. Client also shared he is comfortable with being alone and was able to end an unhealthy relationship while in the program. Client reported he plans to follow up with his new counselor in [place] and to continue practicing healthy coping skills daily. Group provided emotional support to client and offered words of encouragement. Appeared to benefit from reflecting on personal growth made in [facility]. Will discharge today as client has made significant progress towards treatment goals and no longer meets criteria for IOP.
--- NOTE | 2019-04-30 10:17 | BH.SGPN.GN ---
Behaviors/Verbalizations/Mental Status: []Client alert and oriented, casually dressed and groomed. Eye contact good. Motor activity appropriate. Speech within normal limits. Affect congruent to topic being discussed, mood dysthymic. Thoughts linear, logical, no signs of hallucinations or delusions. Client Response/Progress/Benefit: []Client responded well to session, attentive and participating in small group discussion. Group identified the benefits to setting boundaries as well as the consequences of not setting healthy boundaries. Client stated he doesn't believe can have a healthy relationship unless he has healthy boundaries. Client reported setting emotional boundaries is beneficial to maintain a positive self-worth and can overall improve mental health. Client engaged during discussion of the different types of boundaries and engaged in the self-assessment activity. Client able to recognize his own mental health suffers when he does not set boundaries. Client seemed to benefit from increased awareness how poor boundaries can negatively impact mental health. Client to continue IOP tx to continue use of healthy coping skills, prevent decompensation, and improve emotional regulation skills. Narrative Note: []
--- NOTE | 2019-04-30 11:22 | BH.SGPN.GN ---
Behaviors/Verbalizations/Mental Status: [Client alert and oriented, casual dress and appropriate hygiene. Eye contact good. Motor activity appropriate. Speech within normal limits. Affect congruent and bright, mood euthymic. Thoughts linear, logical, no signs of hallucinations or delusions. ] Client Response/Progress/Benefit: [Pt responded well to session, active participant and providing insight throughout. Pt did well to engage in the boundary self-assessment activity and worked with group to further process. Pt discussed that taking the time to think about what his boundaries really look like increased awareness of how rigid some of his boundaries had been prior to IOP admission and learning to challenge his own perspective and be more flexible. Noted that he has learned to set better boundaries with himself as well as learn to rely less on having others ?fix things? when faced with stressors. Pt that in the past his boundaries have impacted trust levels and caused relationship tension as a result. Appeared to benefit from group discussion on strategies for further improving personal boundaries. Identified wanting to improve his ability to set and maintain healthy emotional boundaries. Progress noted in pt ability to identify impact of current boundaries on maintaining mental health progress and relationship with supports. Client to discharge IOP tx on this date and recommended continued treatment on outpatient basis in order to maintain gains made and continue to promote healthy change behaviors. ] Narrative Note: []
== END 2019-05-13 23:59 ==
LOC: BHIOP 09:00
PROVIDERS: Family Provider Family Medicine; PCP Family Medicine; Referring Provider Psychiatry & Neurology Psychiatry; Visit Provider Psychiatry & Neurology Psychiatry
DX: F33.1 Major depressive disorder, recurrent, moderate (principal); F41.1 Generalized anxiety disorder
CPT/HCPCS: H0035; 90834; 90853